=== PATIENT | female | born 1955 | race Hispanic/Latino ===

== ENCOUNTER 2021-03-02 07:23 | Day surgery (SDC) | payer BC ==
[~2021-03-02 07:23] MED LIST: SODIUM CHLORIDE 0.9% 1000 ML 1,000 ML IV SCH
--- NOTE | 2021-03-02 07:51 | Anesthesia Consultation ---
Anesthesia Consult and Med Hx Date of service: 03/02/21 - Airway Anesthetic Teeth Evaluation: Good ROM Head & Neck: Adequate Mental/Hyoid Distance: Adequate Mallampati Class: Class I Intubation Access Assessment: Good - Pulmonary Exam CTA: Yes - Cardiac Exam Cardiac Exam: RRR - Pre-Operative Health Status ASA Pre-Surgery Classification: ASA3 Proposed Anesthetic Plan: MAC - Pulmonary Hx Smoking: No Hx Sleep Apnea: No - Cardiovascular System Hx Hypertension: Yes (20+ YEARS; DR KARO BRANTLEY/PCP) - Central Nervous System Hx Psychiatric Problems: No - Other Systems Hx Cancer: No Hx Obesity: Yes
--- NOTE | 2021-03-02 07:52 | Anesthesia Day of Surgery ---
Anesthesia Day of Surgery - Day of Surgery Patient Examined: Yes Patient H&P Reviewed: Yes Patient is NPO: Yes
[2021-03-02] MEDS ORDERED: propofoL 200 MG/20 ML VIAL IV ONE ×2 (09:12)
[2021-03-02] MEDS ORDERED: LIDOCAINE MPF (2%) 20 MG/1 ML VIAL 5 ML ONE (09:13)
--- NOTE | 2021-03-02 09:34 | Short Stay Summary ---
Short Stay Documentation Date of service: 03/02/21 Narrative H&P: The patient present for colon cancer screening. Her last study was over 10 years ago. - History Past Medical History: GERD, hypertension Past Surgical History: mastectomy Social history: no significant social history - Allergies and Medications Current Medications: Allergies adhesive Adverse Reaction (Verified 05/14/14 16:52) Rash peach Adverse Reaction (Verified 05/14/14 16:52) Nausea Penicillins Adverse Reaction (Verified 05/14/14 16:52) Hives procaine HCl [From Novocain] Adverse Reaction (Verified 05/14/14 16:52) Nausea Home Medications Medication Instructions Recorded Confirmed Last Taken Type Rabeprazole Sodium [Aciphex] 20 mg PO DAILY 05/14/14 06/03/14 06/02/14 10:00 History Ascorbic Acid [Vitamin C] 1,000 mg PO DAILY 05/15/14 06/03/14 06/02/14 10:00 History Calcium Carbonate/Vitamin D3 1 each PO DAILY 05/15/14 06/03/14 06/02/14 10:00 History [Calcium 600-Vit D3 400 Tablet] Cholecalciferol (Vitamin D3) 2,000 unit PO DAILY 05/15/14 06/03/14 06/02/14 10:00 History [Vitamin D3] Chromium Picolinate 1,000 mcg PO DAILY 05/15/14 06/03/14 06/02/14 10:00 History Glucosam/Rosendo-Msm1/C/Rios/Bosw 1 each PO DAILY 05/15/14 06/03/14 06/02/14 10:00 History [Osteo Bi-Flex Caplet] Magnesium 250 mg PO DAILY 05/15/14 06/03/14 06/02/14 10:00 History Multivit-Min/Iron/Folic/Lutein 1 each PO DAILY 05/15/14 06/03/14 06/02/14 10:00 History [Centrum Silver Women Tablet] Triamter/Hctz 37.5-25 mg 1 tab PO QDAY 05/15/14 06/03/14 06/02/14 10:00 History [Maxzide-25] Vitamin B Complex [B Complex] 1 each PO DAILY 05/15/14 06/03/14 06/02/14 10:00 History Active Medications Sodium Chloride (Nacl 0.9% 1000 Ml) 1,000 mls @ 50 mls/hr IV DIRECT DESMOND - Physical exam General appearance: no acute distress, well-nourished, obese Integumentary: no rash, no growths, no abnormal pigmentation HEENT: Atraumatic, PERRLA, EOMI, Mucous membr. moist/pink Lungs: Clear to auscultation Breasts: deferred Heart: Regular rate, Normal S1, Normal S2, No murmurs Gastrointestinal: normoactive bowel sounds, no tenderness, no distended, no masses, no guarding, no organomegaly, obese Female Genitourinary: deferred Rectal Exam: normal exam-external/orifice, normal rectal tone, no mass Extremities: no ischemia, pulses intact, pulses symmetrical, No edema, normal temperature, normal color, Full ROM Neurological: Normal gait, Normal speech, Strength at 5/5 X4 ext, Normal tone, Sensation intact, Cranial nerves 3-12 NL - Brief post op/procedure progress note Date of procedure: 03/02/21 Procedure: see dictation Estimated blood loss: none Pathology: none Condition: stable - Disposition Condition at discharge: Good Disposition: 01 HOME / SELF CARE / HOMELESS - Discharge Diagnoses (1) Colon cancer screening Status: Acute Short Stay Discharge Plan Activity: other (No driving for 24 hours.) Weight Bearing Status: Full Weight Bearing Diet: regular Follow up with: KARO BRANTLEY MD [Primary Care Provider] - 7 Days
--- NOTE | 2021-03-02 09:36 | Operative Report ---
Operative Report Operative Report: Date of procedure: 03/02/2021 Preprocedure diagnosis: Colon cancer screening, average risk profile. Last ponce dy over 10 years ago. Post procedure diagnosis: Mild left colon diverticulosis Procedure: Colonoscopy to the cecum Endoscopist: Dr. Liz Anesthesia: Monitored anesthesia care per anesthesia department Estimated blood loss: 0 Medications: Monitored anesthesia care. See separate report by anesthesia for details. After careful discussion of the nature and purpose of the procedure as well as details of the technique risks benefits and alternatives the patient gave consent. Please see recent history and physical from the office. The patient was placed in the left lateral decubitus position and medicated per anesthesia. A rectal exam was performed sphincter tone was normal there were no masses palpable. The [employer] 570 scope was passed transanally and advanced under continuous direct vision without difficulty to the cecum. The colon was well prepared. The cecum was normal. The ascending colon was normal and on forward and retroflexed views. The transverse colon was normal. There were scattered diverticula in the descending colon and sigmoid colon. The rectum was normal on forward and retroflexed views. The procedure was well-tolerated overall and the patient was observed in recovery. Conclusions: Mild diverticulosis of the left colon. No neoplastic lesions.. Plan: Repeat colonoscopy in 10 years, sooner if clinically indicated. Signed electronically: Hernandez Liz M.D.
--- NOTE | 2021-03-02 10:00 | Post Anesthesia Evaluation ---
- Post Anesthesia Evaluation Patient Participated: Yes Airway Patent: Yes Stable Respiratory Function: Yes Nausea/Vomiting: No Temp > 96.8F: Yes Pain Manageable: Yes Adequeate Hydration: Yes Anesthesia Complications: No
[2021-03-02 19:10] VITALS: BP 136/80
== END 2021-03-02 10:30 | disposition home or self-care (01) ==
LOC: GIO 07:23
PROVIDERS: ATTEND Internal Medicine Gastroenterology
DX: Z12.11 Encounter for screening for malignant neoplasm of colon (principal); K57.30 Diverticulosis of large intestine without perforation or abscess without bleeding; K63.89 Other specified diseases of intestine; I10 Essential (primary) hypertension; E66.9 Obesity, unspecified; K21.9 Gastro-esophageal reflux disease without esophagitis; Z90.710 Acquired absence of both cervix and uterus; Z98.890 Other specified postprocedural states; Z79.899 Other long term (current) drug therapy; Z88.0 Allergy status to penicillin; Z88.8 Allergy status to other drugs, medicaments and biological substances
CPT/HCPCS: 45378; J2704; J7030